=== PATIENT | male | born 1970 | race Caucasian/White ===

== ENCOUNTER → 2016-12-18 | Outpatient (CLI) | payer OTHER ==
[~2016-12-18] MED LIST: HYDR-2666 PO; IBUP-1027 PO; IOHEXOL 300 MG/ML 50 ML VIAL. IT ONE; LIDOCAINE 1% Multi-Dose 20 ML VIAL. ID ONE; METF500T4 PO; VALS1TAB8 PO
--- NOTE | 2016-12-18 16:16 | KCIC ---
PROCEDURE Fluoroscopic guided lumbar puncture for cervical myelography; cervical spine CT myelogram. HISTORY Cervical radiculopathy. TECHNIQUE The risks of the procedure were discussed with the patient and written and verbal consent was obtained. A time-out was performed. Fluoroscopic imaging of the lumbar spine was performed and a site overlying 3-L4 was selected. The skin overlying this region was sterilely prepped, draped and infiltrated with 1 percent lidocaine. A 25 gauge needle was then advanced into the thecal sac and appropriate needle tip position was confirmed with yield of cerebral spinal fluid within the needle hub. The needle was removed and a sterile bandage was placed at the needle entry site. The contrast column was then advanced to the cervical levels and fluoroscopic images were obtained. A total of 5 fluoroscopic images were obtained for a fluoroscopy time of 2 minutes and 41 seconds. COMPARISON None. FINDINGS There is slight reversal of cervical lordosis. There is no significant listhesis. The vertebral bodies are normal in height. There is degenerative endplate remodeling with disc space narrowing and osteophytosis at C5-C6. There is additional endplate remodeling at the remainder of the cervical levels. The skullbase and posterior fossa are unremarkable. No spinal cord lesion is seen. There is no suspicious osseous lesion. There is slight disc calcification at multiple levels, predominately C4-C5. The thyroid is prominent in size, partially included on the field of view. At C2-C3, there is no stenosis. At C3-C4, there is a right paracentral disc protrusion superimposed on a disc bulge and endplate remodeling. There is abutment of the right ventral aspect of the spinal cord and deviation of the right ventral nerve ramus without significant foraminal or central canal stenosis. At C4-C5, there is a posterior central disc protrusion superimposed on a disc bulge and endplate remodeling. There is minimal facet arthropathy. There is no significant stenosis. At C5-C6, there are posterior central and right greater than left paracentral to extra foraminal disc osteophyte complexes superimposed on a disc bulge and endplate osteophytosis. There is uncovertebral arthropathy. There is severe bilateral foraminal stenosis. There is deformation of the spinal cord with mild central canal stenosis measuring 8.1 mm in anterior-posterior dimension. At C6-C7, there is minimal endplate remodeling. There is no stenosis. IMPRESSION 1. C5-C6: Disc osteophyte complexes superimposed on a disc bulge and endplate osteophytosis, resulting in severe bilateral foraminal and mild central canal stenosis. 2. 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 3. Mild degenerative change within the remainder of the cervical spine, without significant stenosis. Electronically signed by: Pauline Perez (Dec 18, 2016 16:15:05)
== END | disposition home or self-care (01) ==
LOC: KCIC 13:45
PROVIDERS: ATTEND Neurological Surgery
DX: M48.02 Spinal stenosis, cervical region (principal); M25.78 Osteophyte, vertebrae; M47.892 Other spondylosis, cervical region
CPT/HCPCS: 72126; 72240; Q9967